=== PATIENT | male | born 1960 | race Caucasian/White ===

== ENCOUNTER 2021-08-02 15:10 | Emergency (ER) | payer MEDICARE, OTHER ==
[~2021-08-02 15:10] MED LIST: ADULT LOW DOSE81 MG PO; CLONIDINE HCL0.1 M1 PO; CYCLOBENZAPRINE10 MG PO; EFFEXOR XR75 MG PO; GLUCOPHAGE500 MG PO; LEVAQUIN750 MG PO; MECLIZINE HCL25 MG PO; NEXIUM40 MG PO; NORFLEX 100 MG100 MG PO; SYNTHROID200 MCG PO; TENORMIN50 MG PO; TYLENOL WITH C1 EACH PO; Voltaren Gel 1% TOP; XANAX1 MG PO; ZETIA10 MG PO; ZOCOR20 MG PO
[2021-08-02 16:17] LABS: HEMOGLOBIN 10.8 gm/dl (14.0-17.5); RED BLOOD COUNT 3.66 M/UL (4.20-5.50); WHITE BLOOD COUNT 5.3 K/UL (4.5-11.0)
[2021-08-02 16:54] LABS: BUN/CREATININE RATIO 14 (0-10)
== END 2021-08-02 22:39 | disposition home or self-care (01) ==
LOC: ER1 15:10
PROVIDERS: Physician Assistant
DX: R53.1 Weakness (principal); Z20.822 Contact with and (suspected) exposure to COVID-19; I12.9 Hypertensive chronic kidney disease with stage 1 through stage 4 chronic kidney disease, or unspecified chronic kidney disease; N18.30 Chronic kidney disease, stage 3 unspecified; E11.22 Type 2 diabetes mellitus with diabetic chronic kidney disease; E78.5 Hyperlipidemia, unspecified; I25.2 Old myocardial infarction; Z95.0 Presence of cardiac pacemaker; Z88.8 Allergy status to other drugs, medicaments and biological substances
CPT/HCPCS: 70450; 71045; 80053; 81001; 82550; 82553; 83874; 84484; 85025; 93005; 99285; U0002